=== PATIENT | male | born 1955 | race Caucasian/White ===

== ENCOUNTER 2022-04-14 11:04 | Emergency (ER) | payer MEDICARE, SELFPAY ==
[2022-04-14 11:43] VITALS: BP 120/80; PULSE 74; RESP 18; TEMP 36.8; O2SAT 97; BMI 29.5
--- NOTE | 2022-04-14 11:43 | EXP.UTC ---
Discharge Plan Disposition Patient Disposition: Home, Self-Care Condition: Good Prescriptions Prescriptions: New cephalexin 500 mg capsule 500 mg PO QID Qty: 40 0RF No Action celecoxib 200 mg capsule 200 mg PO DAILY Label Comments: TAKE 1 CAPSULE BY MOUTH DAILY NEEDED tamsulosin 0.4 mg capsule 0.4 mg PO DAILY Label Comments: TAKE 2 CAPSULES BY MOUTH EVERY NIGHT rosuvastatin 40 mg tablet 40 mg PO DAILY Label Comments: TAKE 1 TABLET BY MOUTH DAILY Xarelto 10 mg tablet 10 mg PO DAILY Label Comments: TAKE 1 TABLET BY MOUTH DAILY Referrals Follow up/Referrals: Provider,Referral, MD [Primary Care Provider] - See instructions Activity Restrictions/Add. Instructions Additional Instructions/Restrictions: Keep the wound clean and dry. Keep a dressing on it if you are going to be getting it dirty. Watch the for signs of infection, such as redness, swelling, drainage, fever. etc. Take tylenol for pain. Follow up with your regular doctor. Return in 10 days to have the sutures removed. GO TO THE ER FOR ANY WORSENING SYMPTOMS OR CONCERNS. 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 He is moving the finger fine and he has normal sensation in it. His tetanus immunization is up to date. Related Data Home Medications Medication Instructions Recorded Confirmed celecoxib 200 mg capsule 200 mg PO DAILY Arthritis 04/14/22 04/14/22 rivaroxaban 10 mg tablet (Xarelto) 10 mg PO DAILY dvt 04/14/22 04/14/22 rosuvastatin 40 mg tablet 40 mg PO DAILY hld 04/14/22 04/14/22 tamsulosin 0.4 mg capsule 0.4 mg PO DAILY prostate 04/14/22 04/14/22 Previous Rx's Medication Instructions Recorded cephalexin 500 mg capsule 500 mg PO QID #40 caps 04/14/22 Allergies Allergy/AdvReac Type Severity Reaction Status Date / Time No Known Allergies Allergy Verified 04/14/22 11:41 PFSH [facility] Social History Smoking Status: Former smoker alcohol intake: never current occupational status: employed Travel in the last 8 weeks: None ROS Obtained: Yes All systems reviewed & no additional complaints except as documented Constitutional Constitutional: Denies chills and Denies fever(s) Eyes Eyes: Denies eye discharge ENT Ears, Nose, Mouth, and Throat: Denies dizziness, Denies otalgia and Denies sore throat Cardiovascular Cardiovascular: Denies chest pain Respiratory Respiratory: Denies shortness of breath, Denies chest congestion, Denies cough, Denies stridor and Denies wheezing Gastrointestinal Gastrointestingal: Denies nausea or vomiting Musculoskeletal Musculoskeletal: Reports system reviewed and no additional complaints, except as documented and Denies arthralgias Integumentary/Breasts Skin/Breast: Reports as per HPI Neurologic Neurologic: Denies dizziness and Denies paresthesias Allergic/Immunologic Allergic/Immunologic: Denies wheezing Physical Exam General General appearance: alert and in no apparent distress Head Head exam: atraumatic, normocephalic and normal inspection Eye Eye exam: Present normal appearance, PERRL and EOMI ENT ENT exam: Present normal exam, normal oropharynx, mucous membranes moist, TM's normal bilaterally and normal external ear exam Neck Neck exam: Present normal inspection, full ROM and trachea midline; Absent meningismus or lymphadenopathy Chest Chest inspection: Present normal inspection and symmetric chest wal
[2022-04-14 13:10] VITALS: BP 118/78; PULSE 72; RESP 18; TEMP 36.6; O2SAT 99
== END 2022-04-14 13:11 | disposition home or self-care (01) ==
PROVIDERS: Emergency Provider Nurse Practitioner Family
DX: S61.219A Laceration without foreign body of unspecified finger without damage to nail, initial encounter (principal); Y92.096 Garden or yard of other non-institutional residence as the place of occurrence of the external cause
CPT/HCPCS: 12001; 99212; 99213; G0463